=== PATIENT | male | born 1975 | race Caucasian/White ===

== ENCOUNTER → 2023-12-26 13:58 | Outpatient (REF) | payer OTHER, SELFPAY | LOC: HWRAD 13:58 | PROVIDERS: ATTENDING PHYSICIAN Nurse Practitioner Family; FAMILY PHYSICIAN Family Medicine | DX: G44.209 Tension-type headache, unspecified, not intractable (principal); M54.2 Cervicalgia | CPT/HCPCS: 70496; 70498; Q9967 ==